=== PATIENT | female | born 1950 | race Hispanic/Latino ===

== ENCOUNTER 2022-10-22 09:42 | Emergency (ER) | payer MEDICARE, OTHER ==
[2022-10-22] MEDS ORDERED: methylPREDNISolone Sod Succ/PF 125 MG/2 ML VIAL ONE (10:30)
[2022-10-22] MEDS ORDERED: Ipratropium/Albuterol 3 ML NEB ONE (10:50)
[2022-10-22 10:59] LABS: #Basophils 0.1 10x3/uL (0.0-0.2); #Eosinphils 0.8 10x3/uL (0.0-0.5); #Monocytes 0.8 10x3/uL (0.0-1.1); #Neutrophils 9.5 10x3/uL (1.5-8.4); %Basophils 0.6 % (0.0-2.0); %Eosinophils 6.8 % (0.0-6.0); %Lymphocytes 6.7 % (18.0-47.0); %Monocytes 6.9 % (0.0-10.0); %Neutrophils 78.8 % (40.0-75.0); Hematocrit 44.6 % (34.9-44.5); Hemoglobin 14.1 g/dL (12.0-15.5); Mean Corpuscular HGB CONC 31.6 g/dL (32.0-36.0); Mean Corpuscular Hemoglobin 29.7 pg (27.0-33.0); Mean Corpuscular Volume 93.9 fl (81.6-98.3); Mean Platelet Volume 10.6 fl (7.4-10.4); Platelet Count 188 10x3/uL (150-450); RBC Distribution Width 13.1 % (11.5-14.5); Red Blood Cell (RBC) Count 4.75 10x6/uL (3.90-5.03); White Blood Cell (WBC) Count 12.1 10x3/uL (3.5-10.5)
[2022-10-22 11:01] LABS: ALT (SGPT) 12 U/L (8-55); AST (SGOT) 20 U/L (5-34); Albumin 4.5 g/dL (3.4-4.8); Alkaline Phosphatase 164 U/L (40-110); Anion Gap 13 mmol/L (10-20); BUN (Urea Nitrogen) 5 mg/dL (9.8-20.1); Bilirubin, Total 0.7 mg/dL (0.2-1.2); Calc. Creatinine Clearance 0 mL/min (70-130); Calcium 10.9 mg/dL (7.8-10.44); Carbon Dioxide 31 mmol/L (23-31); Chloride 101 mmol/L (98-107); Estimated GFR 88; Glucose 125 mg/dL (83-110); Potassium 4.4 mmol/L (3.5-5.1); Protein, Total 7.5 g/dL (5.8-8.1); Sodium 141 mmol/L (136-145)
[2022-10-22] MEDS ORDERED: Iopamidol 370 76% 100 ML VIAL ONE (11:03)
[2022-10-22 11:07] LABS: Troponin I Less than 0.010 ng/mL (< 0.028)
[2022-10-22 12:55] LABS: Actual Bicarbonate (HCO3v) 30.4 mEq/L (22-28); Base Excess 2.5 mEq/L (-2 - +2); Calcium, Ionized (venous) 1.37 mmol/L (1.16-1.32); Chloride (VBG) 100 mmol/L (98-106); Hematocrit-VBG 45 % (36.0-47.0); Hemoglobin (Hb) 15.2 g/dL (11.7-16.1); Puncture Site Other Site; RapidComm Collect By CBN; Sodium 141.2 mmol/L (133-146); pH (venous) 7.319 (7.32-7.43)
[2022-10-22] MEDS ORDERED: Magnesium 2 GM/50 ML BAG (IN WATER) ONE (13:27)
[2022-10-22 13:41] LABS: SARS-CoV-2 NAA Rapid Test Not Detected (NotDetected)
[2022-10-22] MEDS ORDERED: Doxycycline 100 MG in Sodium Chloride 0.9% 100 ML IVPB SCH (14:00)
== END 2022-10-22 18:29 | disposition short-term general hospital (02) ==
LOC: CSHERS 09:42
DX: J44.1 Chronic obstructive pulmonary disease with (acute) exacerbation (principal); E78.5 Hyperlipidemia, unspecified; I10 Essential (primary) hypertension; I25.10 Atherosclerotic heart disease of native coronary artery without angina pectoris; Z87.891 Personal history of nicotine dependence; Z20.822 Contact with and (suspected) exposure to COVID-19
CPT/HCPCS: 36415; 71045; 71275; 80053; 82805; 83605; 83735; 83880; 84484; 85025; 87040; 94640; 94760; J2930; J3475; J3490; J7611; J7620